=== PATIENT | female | born 2000 | race Caucasian/White ===

== ENCOUNTER 2024-08-18 09:56 | Emergency (ER) | payer MEDICAID ==
[~2024-08-18] VITALS: Ht 160 cm; Wt 50.9 kg
[2024-08-18 10:04] VITALS: TEMP 96
[2024-08-18 12:44] LABS: BASOPHILS % (AUTO) 0.4 % (0-1); EOSINOPHILS # (AUTO) 0.2 X10'3 (0-0.9); EOSINOPHILS % (AUTO) 2.6 % (0-6); HEMOGLOBIN 9.5 g/dl (12.0-16.0); LYMPHOCYTES % (AUTO) 12.3 % (21-51); MEAN CORPUSCULAR HEMOGLOBIN 30.8 PG (27.0-31.0); MEAN CORPUSCULAR HGB CONC 33.9 g/dL (33.0-36.5); MEAN CORPUSCULAR VOLUME 90.7 FL (78-98); MEAN PLATELET VOLUME 8.3 FL (7.4-10.4); MONOCYTES # (AUTO) 0.5 X10'3 (0-0.9); MONOCYTES % (AUTO) 5.9 % (2-12); NEUTROPHILS # (AUTO) 6.7 X10'3 (1.8-7.7); NEUTROPHILS % (AUTO) 78.8 % (42-75); PLATELET COUNT 253 X10'3 (140-440); RED BLOOD COUNT 3.09 X10'6 (4.20-5.60); RED CELL DISTRIBUTION WIDTH 14.5 % (11.5-14.5); WHITE BLOOD COUNT 8.5 X10'3 (4.5-11.0)
[2024-08-18 12:46] LABS: APTT 25 SECONDS (22-32); INR 1.1 INR
[2024-08-18 12:49] LABS: ALANINE AMINOTRANSFERASE 22 U/L (12-78); ALBUMIN 3.6 G/DL (3.4-5.0); ALKALINE PHOSPHATASE 68 IU/L (46-116); ANION GAP 5 (8-16); ASPARTATE AMINO TRANSFERASE 17 U/L (10-37); BILIRUBIN,TOTAL 0.5 MG/DL (0.1-1.0); BLOOD UREA NITROGEN 11 MG/DL (7-18); BUN/CREATININE RATIO 18.6 (10.0-20.0); CALCIUM 8.6 MG/DL (8.5-10.1); CHLORIDE 104 MMOL/L (99-107); CREATININE 0.59 MG/DL (0.40-0.90); GLUCOSE 86 MG/DL (70-104); POTASSIUM 3.9 MMOL/L (3.5-5.1); SODIUM 137 MMOL/L (135-145); TOTAL CARBON DIOXIDE 27.9 MMOL/L (24-32); TOTAL PROTEIN 7.2 G/DL (6.4-8.2); eCRCL 121 ML/MIN; eGFR > 90 ML/MIN
[2024-08-18] MEDS: morphine 4 MG/ML inj SYRINge IV ONE (16:02)
[2024-08-18] MEDS: ondansetron/PF 4mg/2ml inj IV ONE (16:02)
[2024-08-18 19:08] VITALS: BP 106/62; PULSE 82; RESP 16; O2SAT 98
== END 2024-08-18 19:11 | disposition hospice, inpatient (51) ==
LOC: ER 09:57
DX: O00.90 Unspecified ectopic pregnancy without intrauterine pregnancy (principal); O99.891 Other specified diseases and conditions complicating pregnancy; O46.8X1 Other antepartum hemorrhage, first trimester; D64.9 Anemia, unspecified; F17.200 Nicotine dependence, unspecified, uncomplicated
CPT/HCPCS: 36415; 76801; 80053; 84702; 85025; 85610; 85730; 96374; 96375; 99291; J2270; J2405

== ENCOUNTER 2024-08-24 21:59 | Emergency (ER) | payer MEDICAID ==
[~2024-08-24] VITALS: Ht 167.6 cm; Wt 54.8 kg
[2024-08-24 22:12] VITALS: BP 105/52; PULSE 91; O2SAT 100
[2024-08-25 00:48] VITALS: RESP 16
[2024-08-25] MEDS: ketorolac trometh 30MG/ML vial 30 MG/ML VIAL IM STA (00:48)
[2024-08-25] MEDS ORDERED: CEPH-585 PO (01:02)
[2024-08-25 01:05] VITALS: TEMP 98.5
[2024-08-25] MEDS: ondansetron 4mg rapidly disintigrating tab PO ONE (01:12)
[2024-08-25] MEDS: acetaminophen 325mg tablet PO ONE (01:12)
[2024-08-25] MEDS: cephalexin 500mg capsule PO ONE (01:12)
== END 2024-08-25 01:20 | disposition home or self-care (01) ==
LOC: ER 22:00
DX: L03.114 Cellulitis of left upper limb (principal); F17.200 Nicotine dependence, unspecified, uncomplicated
CPT/HCPCS: 96372; 99284; J1885

== ENCOUNTER 2025-07-06 09:45 | Emergency (ER) | payer MEDICAID ==
[~2025-07-06] VITALS: Ht 165.1 cm; Wt 61.6 kg
[2025-07-06 09:56] VITALS: BP 105/71; PULSE 86; O2SAT 100
--- NOTE | 2025-07-06 10:00 | Physician Documentation ---
HPI ~ General Chief Complaint: Tooth Problem Stated Complaint: TOOTH PAIN Time Seen by MD: 10:07 History of Present Illness HPI Comment Patient is a very pleasant 24-year-old female that presents to the emergency department for evaluation of right lower jaw pain secondary to an impacted wisdom tooth. Patient reports a gums have become more inflamed she has lymphadenopathy on the lower right side significant discomfort over the last couple of days. Patient reports that she has previously seen a dentist and had other wisdom teeth removed this is the last 1 remaining. Patient reports he has a plan to follow up with a dentist but isn't able to get in for several days. No fever chills nausea vomiting diarrhea noted at this time. Patient has no difficulty with swallowing it no airway concerns at this time. Patient denies any other symptoms at this time. Medication Reconciliation Allergies: Coded Allergies: No Known Allergies (Unverified , 07/06/25) Review of Systems ROS As stated above in the HPI, otherwise all systems are reviewed and negative. Physical Exam Vital Signs: Temperature: 97.8, Source: Oral, Heart Rate: 86, Respiratory Rate: 18, BP: 105/71, Pulse Oximetry: 100, Weight: 61.600 Oxygen Flow Rate: 0 Physical Exam VITALS: Reviewed and as above. GENERAL: Alert, no apparent distress. HEENT: Normocephalic, atraumatic, PERRL, EOMI, dry mucosa, no erythema, mild swelling noted to the right lower jaw and associated gumline, mild lymphadenopathy noted to the right submandibular lymph nodes. RESPIRATORY: Lungs clear, normal breath sounds, no respiratory distress. SKIN: Warm and dry, no rash NEURO: Oriented x4, No motor or sensory deficit PSYCH: Normal mood and affect, no agitation Progress Results/Orders Results/Orders Completed Orders - OLGA LIDIA MAY HPLC CHEMIST Ketorolac Trometh 15mg/Ml Vial (Toradol (07/06/25 10:30) Amox Tr/Potassium Clavulanate (Augmentin (07/06/25 10:30) Ketorolac Trometh 30mg/Ml Vial (Toradol (07/06/25 10:35) Medications Received in ER Medications (Trade) Dose Ordered Sig/Jina Route PRN Reason Start Time Stop Time Status Last Admin Dose Admin (Augmentin 875-125mg tablet) 1 tab ONCE ONCE PO 07/06/25 10:30 07/06/25 10:32 DC 07/06/25 10:48 1 TAB (Toradol inj. 30mg/ml) 30 mg ONCE ONCE IM 07/06/25 10:35 07/06/25 10:36 DC 07/06/25 10:50 30 MG Vital Signs 07/06/25 07/06/25 09:56 10:50 Temp 97.8 Pulse 86 Resp 18 16 B/P (MAP) 105/71 Pulse Ox 100 O2 Flow Rate 0 Medical Decision Making Additional information obtaine: other Findings Chief Complaint: Right lower jaw pain secondary to impacted wisdom tooth History of Present Illness: 24-year-old female presenting with worsening right lower jaw pain over the past several days. Patient reports increased gingival inflammation around her remaining impacted lower right wisdom tooth with associated right-sided cervical lymphadenopathy and significant discomfort. She has a history of previous wisdom tooth extractions and has an established dental follow-up plan, though unable to obtain an appointment for several days. Patient denies fever, chills, nausea, vomiting, diarrhea, dysphagia, or airway compromise. Physical Examination: Patient appears comfortable and in no acute distress. Examination reveals inflamed gingival tissue surrounding the impacted lower right third molar with localized swelling. Palpable right cervical lymphadenopathy noted. No evidence of fascial space involvement, trismus, or airway compromise. Vital signs stable and afebrile. Assessment: Pericoronitis with localized infection secondary to impacted lower right third molar, consistent with localized acute apical abscess without systemic involvement. Medical Decision Making: Number of Diagnoses/Management Options: Moderate complexity. Patient presents with localized odontogenic infection requiring antibiotic therapy and pain management while awaiting definitive dental treatment. Amount/Complexity of Data: Limited. Clinical diagnosis based on history and physical examination. No imaging required given absence of systemic symptoms or concern for deep space infection. Risk of Complications: Moderate. While patient currently lacks systemic involvement, odontogenic infections can progress to more serious complications including fascial space infections. However, patient demonstrates localized disease without fever, malaise, or airway concerns, and has reliable follow-up planned. Treatment Plan: Per [place] guidelines for localized acute apical abscess, initiated antibiotic therapy with amoxicillin-clavulanate (Augmentin) 500/125 mg three times daily for 3-7 days. First dose administered in the emergency department. [1] Patient instructed to complete the full antibiotic course and to discontinue antibiotics 24 hours after symptom resolution. [1] For pain management, administered ketorolac (Toradol) 30 mg intramuscular in the emergency department. Patient counseled that NSAIDs with or without acetaminophen are first-line therapy for acute dental pain and provide superior pain relief compared to opioids. Recommended ibuprofen 400-600 mg every 6 hours as needed, not to exceed 2,400 mg daily, with acetaminophen 1,000 mg as needed for breakthrough pain, not to exceed 4,000 mg daily. [1-3] Disposition and Follow-up: Patient discharged home in stable condition with prescriptions for amoxicillin-clavulanate and instructions for [id number] analgesics. Strongly emphasized the importance of definitive dental treatment within 1-2 days for extraction or other conservative dental management. Patient instructed to return immediately or call if symptoms worsen, including development of fever, increased swelling, difficulty swallowing, breathing difficulties, or progression of infection despite antibiotics. Patient verbalized understanding of discharge instructions and warning signs requiring immediate re-evaluation. [1][3] Patient counseled that antibiotics serve as a bridge to definitive dental care and do not replace the need for urgent dental evaluation and treatment. Given the presence of lymphadenopathy and localized abscess, antibiotic therapy is appropriate while awaiting dental intervention. Differential Dx:Considerations: Include: Alveolar fracture, Alveolar osteitis, ANUG, Facial Cellulitis, Periapical abscess, Peridontal abscess, Post-extraction bleeding, Pulpitis, Tooth avulsion, Tooth eruption, Tooth Fracture, Trigeminal neuralgia, Tooth subluxation, Other Departure Disposition: 01 HOME / SELF CARE / HOMELESS Admitted to Inpatient Unit: other Impression: Primary Impression: Toothache Additional Impression: Dental abscess Condition: Stable Discharge Instructions: Dental Pain, Dental Abscess Referrals: NO PRIMARY CARE PROVIDER (PCP) Prescriptions Hydrocodone Bit/Acetaminophen 5/325 MG ([place] 5/325 MG) 5 Mg/325 Mg Tablet 1 TAB PO Q6H PRN for pain for 2 Days, #4 TAB Prov: OLGA LIDIA MAYP 07/06/25 Amox Tr/Potassium Clavulanate (Augmentin 875-125 Tablet) 1 Each Tablet 1 TAB PO Q12H for 10 Days, #20 TAB Prov: OLGA LIDIA MAYP 07/06/25 Education Educated: Patient Educated regarding: diagnosis, treatment, need for follow up Signature Scribe Signature: A Attestation: Scribed for Olga Lidia May Contract Coordinator by CARTER Sifuentes . 07/06/25 11:03 OLGA LIDIA MAY Jul 06, 2025 09:59
[2025-07-06] MEDS: amox tr/potassium clavulanate 875/125mg TAB PO ONE (10:48)
[2025-07-06 10:50] VITALS: RESP 16
[2025-07-06] MEDS: ketorolac trometh 30MG/ML vial 30 MG/ML VIAL IM ONE (10:50)
[2025-07-06] MEDS: ketorolac trometh 15mg/ml vial 15 MG/ML ML IM ONE (10:54)
[2025-07-06] MEDS ORDERED: HYDR-3965 PO (11:01)
[2025-07-06] MEDS ORDERED: AMOX-117 PO (11:01)
[2025-07-06 11:13] VITALS: TEMP 97.8
== END 2025-07-06 11:15 | disposition home or self-care (01) ==
LOC: ER 09:45
DX: K04.7 Periapical abscess without sinus (principal)
CPT/HCPCS: 96372; 99283; J1885